=== PATIENT | male | born 2000 | race African-American/Black ===

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

== ENCOUNTER 2020-01-30 13:06 | Emergency (ER) | payer SELFPAY ==
[~2020-01-30] VITALS: Ht 170.2 cm; Wt 61.0 kg
[~2020-01-30 13:06] MED LIST: GUAI120L35 PO; PRED15SO3 PO
[2020-01-30 13:20] VITALS: BP 130/72
--- NOTE | 2020-01-30 13:27 | PHYS DOC ---
Past Medical History Past Medical History: Other Additional Past Medical Histor: ALLERGY TO GRASS Past Surgical History: No Surgical History Smoking Status: Never Smoker Alcohol Use: None Drug Use: None General Adult EDM: Chief Complaint: UPPER EXTREMITY PAIN HPI: HPI: Patient is a 19 year old male who presents to the ED today complaining of 8 out of 10 sharp intermittent left shoulder pain, symptoms began a week ago. Patient is employed at [employer], he states the symptoms are worse after lifting boxes at work. He states the symptoms are slightly relieved when he is laying on his back. He states pain feels are not helping. Denies any injury. Denies any numbness or tingling to the left upper extremity. Review of Systems: Review of Systems: Constitutional: Denies fever or chills. [] Musculoskeletal: Reports left shoulder pain Integument: Denies rash. [] Neurologic: Denies headache, focal weakness or sensory changes. [] Psychiatric: Denies depression or anxiety. [] Heart Score: Risk Factors: Risk Factors: DM, Current or recent (<one month) smoker, HTN, HLP, family history of CAD, obesity. Risk Scores: Score 0 - 3: 2.5% MACE over next 6 weeks - Discharge Home Score 4 - 6: 20.3% MACE over next 6 weeks - Admit for Clinical Observation Score 7 - 10: 72.7% MACE over next 6 weeks - Early Invasive Strategies Allergies: Allergies: Allergies Coded Allergies Type Severity Reaction Last Updated Verified No Known Drug Allergies 03/02/14 No Physical Exam: PE: Constitutional: Well developed, well nourished, no acute distress, non-toxic appearance. [] Skin: Warm, dry, no erythema, no rash. [] Back: No tenderness, no CVA tenderness. [] Extremities: Left shoulder with no obvious deformity. Full active as well as passive range of motion to the left shoulder. Adequate radial, median, ulnar sensation to the left upper extremity. +2 left radial pulse. Cap refill less than 2 seconds to left fingers. Neurologic: Alert and oriented X 3, normal motor function, normal sensory function, no focal deficits noted. [] Psychologic: Affect normal, judgement normal, mood normal. [] EKG: EKG: [] Radiology/Procedures: Radiology/Procedures: []PROCEDURE: SHOULDER 2+V LEFT Three-view left shoulder study Clinical indications: Acute left shoulder pain. No known injury. FINDINGS: No acute fracture or dislocation or lytic process is seen. The lateral aspect of the left clavicle is located superior in position relative to the acromial process. This be due to an old AC joint separation given the fact that there is no recent injury. The glenohumeral joint is normally aligned. IMPRESSION: No acute fracture. No significant arthritic change is seen. AC joint separation which may be old given history of no recent injury. Electronically signed by: Minor Borges MD (01/30/2020 1:34 PM) [id number] DICTATED and SIGNED BY: MINOR BORGES MD DATE: 01/30/20 [id number] 0 Course & Med Decision Making: Course & Med Decision Making Pertinent Labs and Imaging studies reviewed. (See chart for details) This is a 19-year-old male patient presenting to the ED today with left shoulder pain for 1 week, symptoms worse while lifting boxes at [employer]. Left shoulder x- rays interpreted by radiologist are negative for any acute findings noted for an AC joint seperation that might be old considering no recent injury. Sling applied to the left upper extremity by the ED RN, neurovascular exam is intact. Supportive care measures recommended. Orthopedic doctor provided. OTC pain relievers as well as Medrol Dosepak and cyclobenzaprine were provided Patient also was requesting a Covid swab stating he needs the results so he can be allowed to get into the grandmother's house. He states he does not want a nasal swab either. Informed patient we only have nasal swabs in our ED. He sta radha he already had one antibiotic like how it felt. Recommended he follows up with the health department for further information on testing. Dragserena Disclaimer: Bryson Disclaimer: This electronic medical record was generated, in whole or in part, using a voice recognition dictation system. Departure Departure Impression: Primary Impression: Left shoulder strain Qualified Codes: S46.912A - Strain of unspecified muscle, fascia and tendon at shoulder and upper arm level, left arm, initial encounter Additional Impression: Separation of AC joint Qualified Codes: S43.102A - Unspecified dislocation of left acromioclavicular joint, initial encounter Disposition: 01 DC HOME SELF CARE/HOMELESS Condition: STABLE Referrals: NO PCP (PCP) CHARLIE MAC MD follow up in one week Patient Instructions: Acromioclavicular Separation with Rehab-SportsMed, Shoulder Exercises, Generic, SportsMed, Shoulder Sprain Additional Instructions: You were evaluated in the emergency room for left shoulder pain, left shoulder x-rays are negative for any acute findings you have an old left shoulder AC joint separation. Follow-up with the provided orthopedic doctor in 1 week. Ice elevate the affected extremity. Come back to the ED at any point symptoms worsen Follow up with the health department for COVID19 testing options. Scripts Naproxen (NAPROXEN) 500 Mg Tablet 1 TAB PO BID for pain, #20 TAB 0 Refills Prov: TERESA KIM APRN 01/30/20 Cyclobenzaprine Hcl (CYCLOBENZAPRINE HCL) 10 Mg Tablet 1 TAB PO TID, #30 TAB Prov: TERESA KIM APRN 01/30/20 Methylprednisolone (MEDROL) 4 Mg Tab.ds.pk 1 PKG PO UD, #1 PKG Prov: TERESA KMI APRN 01/30/20 TERESA KIM APRN Jan 30, 2020 13:27
--- NOTE | 2020-01-30 13:37 | RAD ---
Three-view left shoulder study Clinical indications: Acute left shoulder pain. No known injury. FINDINGS: No acute fracture or dislocation or lytic process is seen. The lateral aspect of the left c lavicle is located superior in position relative to the acromial process. This be due to an old AC elin int separation given the fact that there is no recent injury. The glenohumeral joint is normally alig heber. IMPRESSION: No acute fracture. No significant arthritic change is seen. AC joint separation which may be old given history of no recent injury. Electronically signed by: Minor Borges MD (01/30/2020 1:34 PM) [id number]
[2020-01-30] MEDS ORDERED: NAPR-514 PO (13:45)
[2020-01-30] MEDS ORDERED: METH4TAB2 PO (13:45)
[2020-01-30] MEDS ORDERED: CYCL10TA2 PO (13:45)
== END 2020-01-30 13:45 | disposition home or self-care (01) ==
LOC: ER 13:06
DX: S43.102A Unspecified dislocation of left acromioclavicular joint, initial encounter (principal); S46.812A Strain of other muscles, fascia and tendons at shoulder and upper arm level, left arm, initial encounter; R20.2 Paresthesia of skin; X50.9XXA Other and unspecified overexertion or strenuous movements or postures, initial encounter; Y93.89 Activity, other specified; Y92.89 Other specified places as the place of occurrence of the external cause; Y99.8 Other external cause status
CPT/HCPCS: 73030; 99283; A4565

== ENCOUNTER 2020-02-07 22:14 | Emergency (ER) | payer SELFPAY ==
[~2020-02-07] VITALS: Ht 182.9 cm; Wt 59.1 kg
[~2020-02-07 22:14] MED LIST changes: +CYCL10TA2 PO; +METH4TAB2 PO; +NAPR-514 PO
[2020-02-07 22:31] VITALS: BP 134/67
[2020-02-07] MEDS ORDERED: methylPREDNISolone SOD SUCC PF 125 MG/2 ML VIAL. IM ONE (23:00)
[2020-02-07] MEDS ORDERED: KETOROLAC 60 MG/2 ML VIAL. IM ONE (23:00)
--- NOTE | 2020-02-07 23:02 | RAD ---
Three-view cervical spine dated 02/07/2020. No comparison available. Clinical data indication: Pain after injury. FINDINGS: AP, lateral and odontoid views obtained. Straightening of the normal cervical lordosis through T1. Sa gittal alignment is otherwise anatomic. Vertebral body heights are maintained. No prevertebral soft t issue swelling. Posterior elements are intact. No evidence of fracture. C1-C2 articulation unremarkab le. IMPRESSION: No acute radiographic abnormality. Electronically signed by: Rakesh Meyer MD (02/07/2020 11:00 PM) [id number]
[2020-02-07] MEDS ORDERED: PRED20TA PO (23:24)
[2020-02-07] MEDS ORDERED: NAPR-682 PO (23:24)
--- NOTE | 2020-02-07 23:25 | PHYS DOC ---
Past Medical History Past Medical History: No Pertinent History, Other Additional Past Medical Histor: ALLERGY TO GRASS Past Surgical History: No Surgical History Smoking Status: Never Smoker Alcohol Use: None Drug Use: None General Adult EDM: Chief Complaint: SHOULDER INJURY HPI: HPI: Patient is a 19 year old male presented to the ER today for evaluation of neck pain that being going on for 2 weeks . He denied any injury,no radiation of pain anywhere. Patient denied any upper extremities weakness or numbness. Hurt worse with neck movement. No headache, no cough, no fever, no flurry vision. Review of Systems: Review of Systems: Constitutional: Denies fever or chills. [] Eyes: Denies change in visual acuity. [] HENT: Denies nasal congestion or sore throat. [] Respiratory: Denies cough or shortness of breath. [] Cardiovascular: Denies chest pain or edema. [] GI: Denies abdominal pain, nausea, vomiting, bloody stools or diarrhea. [] : Denies dysuria. [] Musculoskeletal: Denies back pain or joint pain. Positive for neck pain Integument: Denies rash. [] Neurologic: Denies headache, focal weakness or sensory changes. [] Endocrine: Denies polyuria or polydipsia. [] Lymphatic: Denies swollen glands. [] Psychiatric: Denies depression or anxiety. [] Heart Score: Risk Factors: Risk Factors: DM, Current or recent (<one month) smoker, HTN, HLP, family history of CAD, obesity. Risk Scores: Score 0 - 3: 2.5% MACE over next 6 weeks - Discharge Home Score 4 - 6: 20.3% MACE over next 6 weeks - Admit for Clinical Observation Score 7 - 10: 72.7% MACE over next 6 weeks - Early Invasive Strategies Current Medications: Current Medications Medications (Trade) Dose Ordered Sig/Isis Start Time Stop Time Status Last Admin Dose Admin Ketorolac Tromethamine (Toradol Im) 60 mg 1X ONCE 02/07/20 23:00 02/07/20 23:01 DC 02/07/20 23:11 60 MG Methylprednisolone Sodium Succinate (SOLU-Medrol 125MG VIAL) 125 mg 1X ONCE 02/07/20 23:00 02/07/20 23:01 DC 02/07/20 23:11 125 MG Allergies: Allergies: Allergies Coded Allergies Type Severity Reaction Last Updated Verified No Known Drug Allergies 1/14/15 No Physical Exam: PE: Constitutional: Well developed, well nourished, no acute distress, non-toxic appearance. [] HENT: Normocephalic, atraumatic, bilateral external ears normal, oropharynx moist, no oral exudates, nose normal. [] Eyes: PERRLA, EOMI, conjunctiva normal, no discharge. [] Neck: Normal range of motion, left side paraspinal muscle tenderness to palpation. ] Cardiovascular:Heart rate regular rhythm, no murmur [] Lungs & Thorax: Bilateral breath sounds clear to auscultation [] Abdomen: Bowel sounds normal, soft, no tenderness, no masses, no pulsatile masses. [] Skin: Warm, dry, no erythema, no rash. [] Back: No tenderness, no CVA tenderness. [] Extremities: No tenderness, no cyanosis, no clubbing, ROM intact, no edema. [] Neurologic: Alert and oriented X 3, normal motor function, normal sensory function, no focal deficits noted. [] Psychologic: Affect normal, judgement normal, mood normal. [] Current Patient Data: Vital Signs: Vital Signs Date Time Temp Pulse Resp B/P (MAP) Pulse Ox O2 Delivery O2 Flow Rate FiO2 02/07/20 22:31 98.4 96 20 134/67 (89) 100 Room Air 98.4 EKG: EKG: [] Radiology/Procedures: Radiology/Procedures: [][facility] [address] [place] [address] IMAGING REPORT Signed PATIENT: JANUARY FRY ACCOUNT: [id number] : 2000 LOCATION: ER AGE: 19 SEX: M EXAM STATUS: REG ER ORD. PHYSICIAN: ARTEM PARKS DO REASON: NECK PAIN FOR TWO WEEKS. NO KNOWN INJURY PROCEDURE: CERVICAL SPINE 2-3V Three-view cervical spine dated 02/07/2020. No comparison available. Clinical data indication: Pain after injury. FINDINGS: AP, lateral and odontoid views obtained. Straightening of the normal cervical lordosis through T1. Sagittal alignment is otherwise anatomic. Vertebral body heights are maintained. No prevertebral soft tissue swelling. Posterior elements are intact. No evidence of fracture. C1-C2 articulation unremarkable. IMPRESSION: No acute radiographic abnormality. Electronically signed by: Rakesh Meyer MD (02/07/2020 11:00 PM) [facility] DICTATED and SIGNED BY: RAKESH MEYER MD DATE: 02/07/20 [id number] Course & Med Decision Making: Course & Med Decision Making Pertinent Labs and Imaging studies reviewed. (See chart for details) [] Bryson Disclaimer: Bryson Disclaimer: This electronic medical record was generated, in whole or in part, using a voice recognition dictation system. Departure Departure Impression: Primary Impression: Torticollis, acute Disposition: 01 DC HOME SELF CARE/HOMELESS Condition: STABLE Referrals: NO PCP (PCP) follow up with your doctor as needed Patient Instructions: Torticollis, Acute Additional Instructions: Thank you for visiting our Emergency Department. We appreciate you trusting us with your care. If any additional problems come up don't hesitate to return to visit us. Please follow up with your primary care provider so they can plan additional care if needed and know about the problem that you had. If symptoms worsen come back to the Emergency Department. Any concerning symptoms that start such as chest pain, shortness of air, weakness or numbness on one side of the body, running high fevers or any other concerning symptoms return to the ER. Scripts Naproxen Sodium (ANAPROX DS) 550 Mg Tablet 1 TAB PO BID PRN for PAIN for 15 Days, #30 TAB 0 Refills Prov: ARTEM PARKS DO 02/07/20 Prednisone (PREDNISONE) 20 Mg Tablet 1 TAB PO DAILY for 7 Days, #7 TAB Prov: ARTEM PARKS DO 02/07/20 ARTEM PARKS DO Feb 07, 2020 23:25
== END 2020-02-07 23:35 | disposition home or self-care (01) ==
LOC: ER 22:14
DX: M43.6 Torticollis (principal)
CPT/HCPCS: 72040; 96372; 99284; J1885; J2930